=== PATIENT | male | born 1950 | race Caucasian/White ===

== ENCOUNTER → 2024-06-06 | Outpatient (CLI) | payer MEDICARE, MEDICAID, SELFPAY | END | disposition home or self-care (01) | PROVIDERS: PCP Family Medicine; Referring Provider Psychiatry & Neurology Neurology; Visit Provider Psychiatry & Neurology Neurology | DX: G25.3 Myoclonus (principal); F03.90 Unspecified dementia, unspecified severity, without behavioral disturbance, psychotic disturbance, mood disturbance, and anxiety | CPT/HCPCS: 95819 ==

== ENCOUNTER → 2024-06-16 | Outpatient (CLI) | payer MEDICARE, MEDICAID, SELFPAY ==
--- NOTE | 2024-06-16 11:11 | MRI_ITS ---
HISTORY: Dementia, Parkinson''s disease. TECHNIQUE: Multiplanar and multisequence MR images of the brain were obtained without contrast. 298 images. COMPARISON: None. FINDINGS: BRAIN PARENCHYMA: Mild foci of increased T2 FLAIR signal in the bilateral frontal white matter. Small chronic left frontal infarct. No abnormal focus of restricted diffusion with limited evaluation of the frontal lobes due to artifact. No acute intracranial hemorrhage identified. CSF SPACES: Mild generalized volume loss. No significant midline shift or other mass effect.No extra-axial fluid collection. VASCULAR SYSTEM: Major intracranial flow voids are maintained. PARANASAL SINUSES AND MASTOID AIR CELLS: No significant air fluid levels. ORBITS: Symmetric contents. MRI/Brain without Contrast IMPRESSION: No evidence for acute infarct. Chronic involutional and white matter changes. Old left frontal infarct. Electronically Signed: Mary Weiss MD at 12:29 EDT ,
== END | disposition home or self-care (01) ==
LOC: MRI 10:47
PROVIDERS: PCP Family Medicine; Referring Provider Psychiatry & Neurology Neurology; Visit Provider Psychiatry & Neurology Neurology
DX: G20.A1 Parkinson's disease without dyskinesia, without mention of fluctuations (principal); F03.90 Unspecified dementia, unspecified severity, without behavioral disturbance, psychotic disturbance, mood disturbance, and anxiety
CPT/HCPCS: 70551

== ENCOUNTER → 2024-09-12 | Outpatient (CLI) | payer MEDICARE, MEDICAID, SELFPAY ==
[2024-09-12 15:39] LABS: Hematocrit 43.4 % (40-54); Hemoglobin 13.6 g/dL (13.0-16.5); Mean Corp Hgb Conc 31.3 g/dL (32-36); Mean Corpuscular Hgb 28.6 pg (27.0-32.0); Mean Corpuscular Volume 91.2 fL (80-94); Mean Platelet Vol. 11.7 fl (6.2-12.0); Platelet Count 150 K/mm3 (150-450); RBC Distribution Width CV 13.1 % (11.6-14.6); RBC Distribution Width SD 43.3 fl (35.1-43.9); Red Blood Count 4.76 M/mm3 (4.6-6.2); White Blood Count 7.2 K/mm3 (4.4-11.0)
[2024-09-12 15:52] LABS: Vitamin B12 484 pg/mL (211-911)
[2024-09-12 16:19] LABS: ALB/GLOB Ratio 1.1 RATIO (0.9-2.4); AST(SGOT) 14 U/L (15-37); Alanine Aminotransfer ALT/SGPT 20 U/L (16-61); Albumin, Serum 3.9 g/dL (3.2-5.0); Alkaline Phosphatase 78 U/L (45-117); Anion Gap 6 (5-15); BUN 25 mg/dL (7-18); BUN/Creat Ratio 17.4 RATIO (10-20); Calcium,Total 9.3 mg/dL (8.5-10.1); Chloride 106 mmol/L (98-107); Creatinine, Serum 1.44 mg/dL (0.70-1.30); EST Glomerular Filtration Rate 51 mL/min (>60); Est Glom Filt Rate - Afr Amer 61 mL/min (>60); Globulin 3.6 g/dL (2.2-4.2); Glucose 115 mg/dL (74-106); Potassium 4.2 mmol/L (3.5-5.1); Protein, Total 7.5 g/dL (6.4-8.2); Sodium Level 141 mmol/L (136-145)
[2024-09-12 16:26] LABS: Valproic Acid (Depakene) Level 22 ug/mL (50-100)
== END | disposition home or self-care (01) ==
PROVIDERS: PCP Family Medicine; Referring Provider Psychiatry & Neurology Neurology; Visit Provider Psychiatry & Neurology Neurology
DX: F03.90 Unspecified dementia, unspecified severity, without behavioral disturbance, psychotic disturbance, mood disturbance, and anxiety (principal); F32.A Depression, unspecified; F41.9 Anxiety disorder, unspecified
CPT/HCPCS: 36415; 80053; 80164; 82140; 82607; 82746; 84425; 84443; 85027

== ENCOUNTER 2024-10-28 22:40 | Emergency (ER) | payer MEDICARE, MEDICAID, SELFPAY ==
[2024-10-28 22:41] VITALS: BP 118/61; PULSE 64; RESP 18; TEMP 36.8; O2SAT 96; BMI 29.2
[2024-10-28 22:45] VITALS: O2SAT 100
--- NOTE | 2024-10-28 22:55 | CT_ITS ---
EXAM: BRAIN/HEAD WITHOUT CONTRAST CLINICAL HISTORY: FALL FINDINGS: CT images of the brain were acquired without intravenous contrast. Multiplanar reformats were acquired. COMPARISON: MRI brain 06/16/2024. FINDINGS: * ACUTE: No acute infarct or hemorrhage. No mass effect or herniation. * BRAIN PARENCHYMA: Participate interval hypodensity, nonspecific, but likely secondary to chronic microvascular ischemia. Mild generalized volume loss, with concordant ventricular enlargement. * VENTRICLES/EXTRA-AXIAL SPACES: No hydrocephalus or extra-axial fluid collections. * EXTRACRANIAL STRUCTURES: Visualized osseous structures are normal. Soft tissues are normal. CT/Brain/Head without Contrast IMPRESSION: No acute intracranial findings. Chronic microvascular ischemia and involutional changes. Reading Location: [id number]
--- NOTE | 2024-10-28 22:55 | CT_ITS ---
PROCEDURE: SPINE CERVICAL WITHOUT CONTRAS REASON FOR EXAM: FALL TECHNIQUE: Cervical spine CT without contrast. Coronal and sagittal reformatted images COMPARISON: None. FINDINGS: No fracture or malalignment. The cervical spine is curved to the left which may be positional. No prevertebral soft tissue swelling. Lower cervical spondylosis/discogenic change. The visualized apices appear clear. Bilateral carotid calcification. CT/Spine Cervical without Contras IMPRESSION: No fracture or malalignment. The cervical spine is curved to the left which ma y be positional. No prevertebral soft tissue swelling. One or more dose reduction techniques were used (e.g., Automated exposure contr ol, adjustment of the mA and/or kV according to patient size, use of iterative reconstruction technique). Reading Location: [id number]
--- NOTE | 2024-10-28 23:10 | RAD_ITS ---
PROCEDURE: HIP, UNI W/ PELVIS 2-3 VIEWS REASON FOR EXAM: FALL, PAIN TECHNIQUE: AP view of the pelvis and AP and frogleg lateral views of the right hip, 3 total images COMPARISON: None. FINDINGS: No fracture or dislocation. The joint space appears within limits. Symmetric appearing SI joints and pubic symphysis appear within limits. Vascular calcifications noted. RAD/HIP, UNI W/ Pelvis 2-3 Views IMPRESSION: No fracture or dislocation. Reading Location: [id number]
--- NOTE | 2024-10-28 23:10 | RAD_ITS ---
PROCEDURE: ELBOW MIN 3 VIEWS REASON FOR EXAM: PAIN TECHNIQUE: 3 view(s) of right elbow COMPARISON: None. FINDINGS: RIGHT ELBOW: No fracture, dislocation or joint effusion. The joint spaces appear within limits. RAD/Elbow min 3 Views IMPRESSION: No fracture, dislocation or joint effusion. Reading Location: [id number]
[2024-10-28] MEDS: Diphth,Pertuss(Acell),Tet Vac 0.5 ML Vial IM (23:49)
--- NOTE | 2024-10-28 23:55 | EX.ED.DYSGE1 ---
HPI History of Present Illness Chief Complaint: Fall Narrative Narrative: Patient is a 74-year-old male with past medical history of Parkinson's, hypertension, Alzheimer's dementia, atrial fibrillation, anxiety who presents to the emergency department chief complaint of fall. According to staff that this was an unwitnessed fall they deny any blood thinner medications. Staff notes that he had a fall yesterday and then again today. Per staff and nursing facility he is at his baseline from his mental status. Patient was complaining of right hip pain for EMS. [facility] Medical History Depressed Anxiety GERD (gastroesophageal reflux disease) Hyperlipemia Hypertension A-fib Alzheimer dementia Parkinsons Home Medications ?Medication ?Instructions ?Recorded ?Last Taken ?Type acetaminophen 500 mg tablet 500 mg PO Q12H PRN 05/16/24 Unknown History (Tylenol Extra Strength) aluminum-mag hydroxide-simethicone 30 ml PO Q6H PRN upset stomach 05/16/24 Unknown History 200 mg-200 mg-20 mg/5 mL oral susp atorvastatin 40 mg tablet 40 mg PO QHS 05/16/24 Unknown History bisacodyl 10 mg rectal suppository 10 mg VA QDAY PRN 05/16/24 Unknown History carbidopa 25 mg-levodopa 100 mg 1 tab PO TID 05/16/24 Unknown History tablet dextromethorphan-guaifenesin 10 5 ml PO Q8H PRN cough 05/16/24 Unknown History mg-100 mg/5 mL oral syrup divalproex 125 mg tablet,delayed 125 mg PO BID 05/16/24 Unknown History release (Depakote) escitalopram oxalate 10 mg tablet 10 mg PO QDAY 05/16/24 Unknown History magnesium hydroxide 400 mg/5 mL 30 ml PO QDAY PRN 05/16/24 Unknown History oral suspension (Milk of Magnesia) mineral oil 118 ml VA QDAY PRN constipation 05/16/24 Unknown History ropinirole 0.25 mg tablet 0.25 mg PO QHS 05/16/24 Unknown History trazodone 100 mg tablet 100 mg PO QHS 05/16/24 Unknown History donepezil 10 mg tablet 10 mg PO QHS #30 tabs 05/18/24 Unknown Rx memantine 28 mg capsule 28 mg PO DAILY #30 ea 05/18/24 Unknown Rx sprinkle,extended release 24hr omeprazole 20 mg capsule,delayed 40 mg PO QDAY 09/12/24 Unknown History release Allergy/AdvReac Type Severity Reaction Status Date / Time No Known Allergies Allergy Verified 10/28/24 22:44 Social History housing: residential Smoking Status: Never smoker ROS ROS ED ROS Narrative Review of systems unobtainable from the patient secondary to his underlying dementia EXAM Physical Exam Narrative Exam Narrative: General: Patient is lying in bed rest comfortably did not appear to be in acute distress Head: Atraumatic, normocephalic Eyes: PERRL bilateral, EOMI bilateral, no conjunctival injection noted Neck: Soft, supple, trachea midline Cardiovascular: Regular rate and rhythm no murmurs gallops rubs noted Respiratory: Clear to auscultation bilaterally no rales rhonchi or wheezes noted Abdomen: Soft, nondistended, nontender to palpation Musculoskeletal: All bony prominences palpated joints taken to full range of motion no pain elicited no tenderness palpation midline of thoracic lumbar spine Extremities: +4/5 strength noted in the bilateral upper and lower extremities, radial pulses +2/4 in about upper extremities Neurological: Patient is at his baseline per staff knew that he is at the hospital he told us his birthday and his name Skin: Patient has small superficial abrasion noted to the right lateral elbow Const Vital Signs: 10/28/24 22:41 10/28/24 22:45 Temperature 98.3 F Temperature Source Oral Pulse Rate 64 Respiratory Rate 18 Respiratory Effort Normal Non-Labored Respiratory Depth Normal Respiratory Pattern Normal Blood Pressure 118/61 Blood Pressure Mean 80 Pulse Ox 96 100 Oxygen Delivery Method Room Air MDM MDM MDM Narrative Medical decision making narrative: Patient is a 74-year-old male who presented to the emerged part with a chief complaint of multiple falls and right hip pain. On the differential diagnose includes but limited to right hip fracture, intracranial hemorrhage, right elbow fracture. Once workup is obtained reviewed he will be reevaluated. Patient will be given a tetanus shot here today. Patient's CT head and brain without contrast showed no acute intracranial findings chronic microvascular ischemia and involutional changes noted. Patient CT cervical spine reviewed showed no fracture or malalignment. Cervical spine is clear to the left which may be positional no prevertebral soft tissue swelling. Patient's x-ray of his elbow reviewed by myself and by radiology showed no acute fracture or dislocation. Patient's x-ray of his hip and pelvis reviewed by myself by radiology showed no acute fracture or dislocation. At this point time patient will be discharged back to his facility in the stable condition as he is at his baseline. Did discuss results with the patient and concerns answered at bedside. Radiography Diagnostic Testing: Clinical Impression(s) from Imaging Studies Brain CT 10/28/24 22:55 IMPRESSION: No acute intracranial findings. Chronic microvascular ischemia and involutional changes. Reading Location: [facility] Cervical Spine CT 10/28/24 22:55 IMPRESSION: No fracture or malalignment. The cervical spine is curved to the left which may be positional. No prevertebral soft tissue swelling. One or more dose reduction techniques were used (e.g., Automated exposure control, adjustment of the mA and/or kV according to patient size, use of iterative reconstruction technique). Reading Location: [facility] Elbow X-Ray 10/28/24 23:10 IMPRESSION: No fracture, dislocation or joint effusion. Reading Location: [facility] Hip/Pelvis X-Ray 10/28/24 23:10 IMPRESSION: No fracture or dislocation. Reading Location: [facility] Discharge Plan Triage Chief Complaint: Fall ED Provider: Jeremiah Rodriguez Dx/Rx/DC Orders Clinical Impression: Fall, Dementia, Parkinson's disease Prescriptions: No Action alum-mag hydroxide-simeth 200-200-20 mg/5 mL suspension 30 ml PO Q6H PRN (Reason: upset stomach) Rx Instructions: 1 and 3 hours after meals and at bedtime atorvastatin 40 mg tablet 40 mg PO QHS bisacodyl 10 mg suppository 10 mg VA QDAY PRN carbidopa-levodopa 25-100 mg tablet 1 tab PO TID dextromethorphan-guaifenesin 10-100 mg/5 mL syrup 5 ml PO Q8H PRN (Reason: cough) mineral oil Enema 118 ml VA QDAY PRN (Reason: constipation) Rx Instructions: discard any unused portion escitalopram oxalate 10 mg tablet 10 mg PO QDAY magnesium hydroxide [Milk of Magnesia] 400 mg/5 mL suspension 30 ml PO QDAY PRN ropinirole 0.25 mg tablet 0.25 mg PO QHS Rx Instructions: administer 1-3 hours before bedtime trazodone 100 mg tablet 100 mg PO QHS acetaminophen [Tylenol Extra Strength] 500 mg tablet 500 mg PO Q12H PRN divalproex [Depakote] 125 mg tablet,delayed release (DR/EC) 125 mg PO BID memantine 28 mg capsule,sprinkle,ER 24hr 28 mg PO DAILY Qty: 30 6RF Rx Instructions: Week #4 and thereafter donepezil 10 mg tablet 10 mg PO QHS Qty: 30 5RF omeprazole 20 mg capsule,delayed release(DR/EC) 40 mg PO QDAY Primary Care Provider: John Le Referrals: John Le MD [Primary Care Provider] - Activity Restrictions/Additional Instructions: Patient CT of his head, cervical spine, x-ray of his right elbow and his hip and pelvis did not show any acute fractures or any other acute findings. Patient tetanus shot was updated here today. Print Language: Bulgarian Disposition Disposition: Home, Self Care
[2024-10-29 00:40] VITALS: BP 118/61; PULSE 70; RESP 18; TEMP 36.3; O2SAT 98
== END 2024-10-29 01:54 | disposition skilled nursing facility (03) ==
PROVIDERS: Emergency Provider Emergency Medicine; PCP Family Medicine; Visit Provider Emergency Medicine
DX: M25.551 Pain in right hip (principal); G20.A1 Parkinson's disease without dyskinesia, without mention of fluctuations; G30.9 Alzheimer's disease, unspecified; F02.84 Dementia in other diseases classified elsewhere, unspecified severity, with anxiety; E78.5 Hyperlipidemia, unspecified; I10 Essential (primary) hypertension; K21.9 Gastro-esophageal reflux disease without esophagitis; R29.6 Repeated falls; W19.XXXA Unspecified fall, initial encounter; Z23 Encounter for immunization; S50.311A Abrasion of right elbow, initial encounter
CPT/HCPCS: 70450; 72125; 73080; 73502; 90471; 90715; 99284

== ENCOUNTER 2024-11-28 19:36 | Emergency (ER) | payer MEDICARE, MEDICAID, SELFPAY ==
[2024-11-28 19:37] VITALS: BP 173/86; PULSE 65; RESP 12; TEMP 37; O2SAT 98; BMI 29.2
--- NOTE | 2024-11-28 19:51 | CT_ITS ---
PROCEDURE: SPINE THORACIC WITHOUT CONTRAS REASON FOR EXAM: FALL, PAIN TECHNIQUE: Thoracic spine CT without contrast. Coronal and Sagittal reconstruction series were provided. One or more dose reduction techniques were used (e.g., Automated exposure control, adjustment of the mA and/or kV according to patient size, use of iterative reconstruction technique). FINDINGS: Alignment normal Bones: Normal thoracic vertebral heights. No acute fracture. No suspicious lytic or blastic lesion. Soft Tissues: Unremarkable. Other: CT/Spine Thoracic without Contras IMPRESSION: NO ACUTE THORACIC FRACTURE Reading Location: [id number]
--- NOTE | 2024-11-28 19:51 | CT_ITS ---
PROCEDURE: BRAIN/HEAD WITHOUT CONTRAST 11/28/2024 REASON FOR EXAM: HEAD INJURY TECHNIQUE: Head CT without intravenous contrast. Coronal and Sagittal reconstruction series were provided. One or more dose reduction techniques were used (e.g., Automated exposure control, adjustment of the mA and/or kV according to patient size, use of iterative reconstruction technique. COMPARISON: 10/28/2024 FINDINGS: Brain: Low density in the periventricular white matter suggests mild chronic small vessel ischemic changes. CSF Spaces: Mild generalized cerebral atrophy Sinuses/Mastoids: Clear at visualized levels Bones: Unremarkable. CT/Brain/Head without Contrast IMPRESSION: CHRONIC CHANGES. NO ACUTE FINDINGS. Reading Location: [facility]
--- NOTE | 2024-11-28 19:51 | ED.VIS.FALL ---
HPI <EAN Kan - Last Filed: 11/28/24 21:09> HPI - Fall History of Present Illness Chief Complaint: Fall Narrative Narrative: 74-year-old male with Parkinson's dementia [facility] an [facility]itnessed fall. He normally does not ambulate much on his own because of his unsteady gait from Parkinson's. Staff heard a thud and immediately went into his room and it appeared he had hit the back of his head on a stone counter. No loss of consciousness. He is not on blood thinners. He complains of pain in his head and neck. He does not recall the event. [facility] <EAN Kan - Last Filed: 11/28/24 21:09> [facility] Medical History Depressed Anxiety GERD (gastroesophageal reflux disease) Hyperlipemia Hypertension A-fib Alzheimer dementia Parkinsons Home Medications ?Medication ?Instructions ?Recorded ?Last Taken ?Type acetaminophen 500 mg tablet 500 mg PO Q12H PRN fever or pain 05/16/24 Unknown History (Tylenol Extra Strength) aluminum-mag hydroxide-simethicone 30 ml PO Q6H PRN upset stomach 05/16/24 Unknown History 200 mg-200 mg-20 mg/5 mL oral susp atorvastatin 40 mg tablet 40 mg PO QHS 05/16/24 Unknown History bisacodyl 10 mg rectal suppository 10 mg MI QDAY PRN constipation 05/16/24 Unknown History carbidopa 25 mg-levodopa 100 mg 1 tab PO TID 05/16/24 Unknown History tablet dextromethorphan-guaifenesin 10 5 ml PO Q8H PRN cough 05/16/24 Unknown History mg-100 mg/5 mL oral syrup divalproex 125 mg tablet,delayed 125 mg PO BID 05/16/24 Unknown History release (Depakote) escitalopram oxalate 10 mg tablet 10 mg PO QDAY 05/16/24 Unknown History magnesium hydroxide 400 mg/5 mL 30 ml PO QDAY PRN constipation 05/16/24 Unknown History oral suspension (Milk of Magnesia) mineral oil 118 ml MI QDAY PRN constipation 05/16/24 Unknown History ropinirole 0.25 mg tablet 0.25 mg PO QHS 05/16/24 Unknown History trazodone 100 mg tablet 100 mg PO QHS 05/16/24 Unknown History donepezil 10 mg tablet 10 mg PO QHS #30 tabs 05/18/24 Unknown Rx memantine 28 mg capsule 28 mg PO DAILY #30 ea 05/18/24 Unknown Rx sprinkle,extended release 24hr omeprazole 20 mg capsule,delayed 40 mg PO QDAY 09/12/24 Unknown History release Allergy/AdvReac Type Severity Reaction Status Date / Time No Known Allergies Allergy Verified 10/28/24 22:44 Social History housing: care home Smoking Status: Never smoker ROS <EAN Kan - Last Filed: 11/28/24 21:09> ROS ED ROS Narrative Unable to obtain due to dementia EXAM <EAN Kan - Last Filed: 11/28/24 21:09> Physical Exam Narrative Exam Narrative: CONST: Patient sitting in no acute distress. EYES: Normal inspection. PERRL, EOMI. HEAD: Tender over occipital scalp with no hematoma or external signs of injury. NECK: Normal inspection. Tender over midline cervical and thoracic spine without step-offs. RESP: No respiratory distress, CTAB. Chest wall nontender. CVS: Regular rate and rhythm, no murmur, no gallop. ABD: Soft and nontender, no guarding or rebound, nondistended. SKIN: Color normal, no rash, warm, dry, intact. EXTREMITIES: Normal appearance, 2+ radial and DP pulses. NEURO: Alert to self and place. Moves all extremities, general debility. PSYCH: Normal affect. Const Vital Signs: 11/28/24 19:37 11/28/24 20:36 11/28/24 20:37 Temperature 98.6 F Temperature Source Oral Pulse Rate 65 72 Respiratory Rate 12 18 Respiratory Effort Normal Respiratory Depth Normal Respiratory Pattern Normal Blood Pressure 173/86 H 139/95 H Blood Pressure Mean 115 109 Pulse Ox 98 98 98 Oxygen Delivery Method Room Air Room Air Room Air 11/28/24 21:00 11/28/24 21:00 Temperature 98.6 F Temperature Source Pulse Rate 83 83 Respiratory Rate 18 18 Respiratory Effort Respiratory Depth Respiratory Pattern Blood Pressure 137/96 H 137/96 H Blood Pressure Mean 109 109 Pulse Ox 98 98 Oxygen Delivery Method Room Air <Dr. Howard Schultz MD - Last Filed: 11/28/24 21:04> Physical Exam Const Vital Signs: 11/28/24 19:37 11/28/24 20:36 11/28/24 20:37 Temperature 98.6 F Temperature Source Oral Pulse Rate 65 72 Respiratory Rate 12 18 Respiratory Effort Normal Respiratory Depth Normal Respiratory Pattern Normal Blood Pressure 173/86 H 139/95 H Blood Pressure Mean 115 109 Pulse Ox 98 98 98 Oxygen Delivery Method Room Air Room Air Room Air 11/28/24 21:00 11/28/24 21:00 Temperature 98.6 F Temperature Source Pulse Rate 83 83 Respiratory Rate 18 18 Respiratory Effort Respiratory Depth Respiratory Pattern Blood Pressure 137/96 H 137/96 H Blood Pressure Mean 109 109 Pulse Ox 98 98 Oxygen Delivery Method Room Air MDM <EAN Kan - Last Filed: 11/28/24 21:09> MDM MDM Narrative Medical decision making narrative: History gathered from: EMS due to patient's dementia 74-year-old male had an unwitnessed fall that was heard by staff and he was immediately evaluated and awake. They suspect he hit the back of his head on a stone ledge. Unknown LOC but nursing staff are in there immediately after the injury and he was awake and alert. No blood thinners. He is awake and alert x 2 at baseline. He has Parkinson's dementia. He is tender over the occipital scalp without signs of hematoma or basilar skull fracture. He is also diffusely tender over the cervical and thoracic spine without step-offs. The rest of his exam is negative for traumatic injuries. CT scans of the brain, cervical and thoracic spine are all negative. Patient will be discharged back to his facility. I have personally performed a face to face assessment of the patient and have reviewed the NEISHA Note. I performed a substantive portion of the visit including all aspects of the following. My harrell findings include: History is 74-year-old male from a local group home facility. Had an unwitnessed fall which they believe he struck the back of his head and back on the counter. Unknown LOC. Patient himself has dementia and Parkinson's is a very limited informant. Exam is [74-year-old male sitting upright in bed. Vital signs are stable afebrile. No acute distress. No family with him. H EENT exam pupils round reactive light. He has mild tenderness about of his scalp. There is no laceration. No blood. No large hematoma. C-spine nontender. Trachea midline. He has diffuse tenderness on his thoracic spine. There is no ecchymosis or bruising. No subcu air or crepitance. Lungs clear to auscultation. Heart regular rhythm rate about 70 no murmur. Chest wall ribs nontender. Abdomen soft nontender. No bruising. No peritoneal signs. Pelvic girdle intact. Upper and lower extremities are nontender. No deformity. 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 He can move his upper extremities. Dorsi plantarflexion intact. Hips are nontender. Neurologically he is awake. He is a very limited informant. He follows limited commands.] Medical Decision Making [74-year-old demented male fell at the care home head and upper back injury. CAT scans were obtained of his head, neck Thoracic spine. Chronic changes were seen no acute processes. Exam at 9 PM he is doing well be discharged to home..] Other additions or changes: [None] Radiography Diagnostic Testing: Clinical Impression(s) from Imaging Studies Brain CT 11/28/24 19:51 IMPRESSION: CHRONIC CHANGES. NO ACUTE FINDINGS. Reading Location: [facility] Thoracic Spine CT 11/28/24 19:51 IMPRESSION: NO ACUTE THORACIC FRACTURE Reading Location: [id number] Cervical Spine CT 11/28/24 20:10 IMPRESSION: NO ACUTE CERVICAL FRACTURE. DEGENERATIVE CHANGES. Reading Location: [facility] <Dr. Howard Schultz MD - Last Filed: 11/28/24 21:04> [facility] MDM Narrative Medical decision making narrative: History gathered from: EMS due to patient's dementia 74-year-old male had an unwitnessed fall that was heard by staff and he was immediately evaluated and awake. They suspect he hit the back of his head on a stone ledge. No LOC. No blood thinners. He is awake and alert x 2 at baseline. He has Parkinson's dementia. He is tender over the occipital scalp without signs of hematoma or basilar skull fracture. He is also diffusely tender over the cervical and thoracic spine without step-offs. The rest of his exam is negative for traumatic injuries. CT scans I have personally performed a face to face assessment of the patient and have reviewed the NEISHA Note. I performed a substantive portion of the visit including all aspects of the following. My harrell findings include: History is 74-year-old male from a local group home facility. Had an unwitnessed fall which they believe he struck the back of his head and back on the counter. Unknown LOC. Patient himself has dementia and Parkinson's is a very limited informant. Exam is [74-year-old male sitting upright in bed. Vital signs are stable afebrile. No acute distress. No family with him. H EENT exam pupils round reactive light. He has mild tenderness about of his scalp. There is no laceration. No blood. No large hematoma. C-spine nontender. Trachea midline. He has diffuse tenderness on his thoracic spine. There is no ecchymosis or bruising. No subcu air or crepitance. Lungs clear to auscultation. Heart regular rhythm rate about 70 no murmur. Chest wall ribs nontender. Abdomen soft nontender. No bruising. No peritoneal signs. Pelvic girdle intact. Upper and lower extremities are nontender. No deformity. 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 He can move his upper extremities. Dorsi plantarflexion intact. Hips are nontender. Neurologically he is awake. He is a very limited informant. He follows limited commands.] Medical Decision Making [74-year-old demented male fell at the care home head and upper back injury. CAT scans were obtained of his head, neck Thoracic spine. Chronic changes were seen no acute processes. Exam at 9 PM he is doing well be discharged to home..] Other additions or changes: [None] Radiography Diagnostic Testing: Clinical Impression(s) from Imaging Studies Brain CT 11/28/24 19:51 IMPRESSION: CHRONIC CHANGES. NO ACUTE FINDINGS. Reading Location: [facility] Thoracic Spine CT 11/28/24 19:51 IMPRESSION: NO ACUTE THORACIC FRACTURE Reading Location: [id number] Cervical Spine CT 11/28/24 20:10 IMPRESSION: NO ACUTE CERVICAL FRACTURE. DEGENERATIVE CHANGES. Reading Location: [facility] Discharge Plan Triage Chief Complaint: Fall ED Midlevel Provider: Desi Carolina ED Provider: Howard Schultz Dx/Rx/DC Orders Clinical Impression: Closed head injury, Cervicalgia, Back pain, Dementia associated with Parkinson's disease Instructions: ED Head Injury (Adult) Prescriptions: No Action alum-mag hydroxide-simeth 200-200-20 mg/5 mL suspension 30 ml PO Q6H PRN (Reason: upset stomach) Rx Instructions: 1 and 3 hours after meals and at bedtime atorvastatin 40 mg tablet 40 mg PO QHS bisacodyl 10 mg suppository 10 mg MI QDAY PRN (Reason: constipation) carbidopa-levodopa 25-100 mg tablet 1 tab PO TID dextromethorphan-guaifenesin 10-100 mg/5 mL syrup 5 ml PO Q8H PRN (Reason: cough) mineral oil Enema 118 ml MI QDAY PRN (Reason: constipation) Rx Instructions: discard any unused portion escitalopram oxalate 10 mg tablet 10 mg PO QDAY magnesium hydroxide [Milk of Magnesia] 400 mg/5 mL suspension 30 ml PO QDAY PRN (Reason: constipation) ropinirole 0.25 mg tablet 0.25 mg PO QHS Rx Instructions: administer 1-3 hours before bedtime trazodone 100 mg tablet 100 mg PO QHS acetaminophen [Tylenol Extra Strength] 500 mg tablet 500 mg PO Q12H PRN (Reason: fever or pain) divalproex [Depakote] 125 mg tablet,delayed release (DR/EC) 125 mg PO BID memantine 28 mg capsule,sprinkle,ER 24hr 28 mg PO DAILY Qty: 30 6RF Rx Instructions: Week #4 and thereafter donepezil 10 mg tablet 10 mg PO QHS Qty: 30 5RF omeprazole 20 mg capsule,delayed release(DR/EC) 40 mg PO QDAY Primary Care Provider: John Le Referrals: John Le MD [Primary Care Provider] - Activity Restrictions/Additional Instructions: CT scans of his head neck and thoracic spine are all negative for traumatic injuries. Give Tylenol as needed. Follow-up with primary care doctor. Print Language: Welsh Disposition Disposition: Home, Self Care
--- NOTE | 2024-11-28 20:10 | CT_ITS ---
PROCEDURE: SPINE CERVICAL WITHOUT CONTRAS 11/28/2024 REASON FOR EXAM: PAIN TECHNIQUE: Cervical spine CT without contrast. Coronal and Sagittal reconstruction series were provided. One or more dose reduction techniques were used (e.g., Automated exposure control, adjustment of the mA and/or kV according to patient size, use of iterative reconstruction technique COMPARISON: 10/28/2024 FINDINGS: Alignment: Normal alignment. Vertebrae: No acute fracture. Mild disc space narrowing and osteophyte formation of the lower cervical spine consistent with mild degenerative disc disease. Soft Tissues: Unremarkable. Other: CT/Spine Cervical without Contras IMPRESSION: NO ACUTE CERVICAL FRACTURE. DEGENERATIVE CHANGES. Reading Location: [id number]
[2024-11-28 20:36] VITALS: BP 139/95; PULSE 72; RESP 18; O2SAT 98
[2024-11-28 20:37] VITALS: O2SAT 98
[2024-11-28 21:00] VITALS: BP 137/96; PULSE 83; RESP 18; TEMP 37; O2SAT 98
[2024-11-28 22:00] VITALS: BP 148/98; PULSE 66; RESP 18; O2SAT 98
== END 2024-11-28 22:41 | disposition home or self-care (01) ==
PROVIDERS: Emergency Provider Emergency Medicine; PCP Family Medicine; Visit Provider Emergency Medicine
DX: S09.90XA Unspecified injury of head, initial encounter (principal); G20.A1 Parkinson's disease without dyskinesia, without mention of fluctuations; F02.80 Dementia in other diseases classified elsewhere, unspecified severity, without behavioral disturbance, psychotic disturbance, mood disturbance, and anxiety; I48.91 Unspecified atrial fibrillation; E78.5 Hyperlipidemia, unspecified; W19.XXXA Unspecified fall, initial encounter; I10 Essential (primary) hypertension; M54.2 Cervicalgia; Y92.129 Unspecified place in nursing home as the place of occurrence of the external cause; F32.A Depression, unspecified; F41.9 Anxiety disorder, unspecified; Z79.899 Other long term (current) drug therapy
CPT/HCPCS: 70450; 72125; 72128; 99284; A4216